=== PATIENT | female | born 1980 | race Caucasian/White ===

== ENCOUNTER 2016-09-20 21:33 | Emergency (ER) | payer OTHER ==
[2016-09-20 21:39] VITALS: BMI 25.7
[2016-09-20] MEDS ORDERED: IBUPROFEN 600 MG TABLET (FP) PO ONE ×2 (21:39→21:41)
[2016-09-20 21:59] LABS: URINE APPEARANCE CLEAR; URINE BILIRUBIN NEGATIVE (NEGATIVE); URINE BLOOD 3+ (NEGATIVE); URINE COLOR LTYELLOW; URINE GLUCOSE (UA) NEGATIVE (NEGATIVE); URINE KETONE 1+ (NEGATIVE); URINE LEUK ESTERASE NEGATIVE (NEGATIVE); URINE NITRITE NEGATIVE (NEGATIVE); URINE PROTEIN 1+ (NEGATIVE); URINE UROBILINOGEN NEGATIVE E.U./dl (0.2-1.0)
[2016-09-20 22:00] LABS: URINE BACTERIA RARE /hpf (NONE SEEN); URINE MUCUS RARE; URINE RBC 34 /hpf (0-3); URINE WBC 2 /hpf (3-5)
[2016-09-20] MEDS ORDERED: SODIUM CHLORIDE 1,000 ML IV STA (23:01)
--- NOTE | 2016-09-20 23:04 | PDOC ---
[id number] COLD SYMPTOMS Time Seen by Provider: 09/20/16 21:36 History Source: Patient Exam Limitations: No Limitations - History of Present Illness Initial Comments: 09/20/16 23:04 CHIEF COMPLAINT: Fever HISTORY OF PRESENT ILLNESS: This is a 36-year-old female with a history only of c/s x 3 (last 5 yrs ago) who presents to the ED complaining of 2 days of fevers/ chills, lower abdominal pain, back pain, and throat pain. She denies cough, shortness of breath, or chest pain. She reports dysuria/burning on urination and copious vaginal discharge. Vital signs on arrival are notable for oral temperature of 102.6 and pulse of 122. Patient does not have a PCP. REVIEW OF SYSTEMS: GENERAL/CONSTITUTIONAL: Fevers/chills, malaise. HEAD, EYES, EARS, NOSE AND THROAT: Throat pain/painful swallowing. CARDIOVASCULAR: No chest pain or palpitations. RESPIRATORY: No cough, wheezing, or shortness of breath. GASTROINTESTINAL: Nausea. No vomiting, diarrhea or constipation. GENITOURINARY: Dysuria/burning on urination. Lower abdominal pain and back pain. Vaginal discharge. LMP ended 1 wk ago. MUSCULOSKELETAL: No joint or muscle swelling or pain. No neck or back pain. SKIN: No rash or easy bruising. NEUROLOGIC: No headache, vertigo, loss of consciousness, or loss of sensation. PSYCHIATRIC: No depression or anxiety. ENDOCRINE: No increased thirst. No abnormal weight change. HEMATOLOGIC/LYMPHATIC: No anemia, easy bleeding, or history of blood clots. ALLERGIC/IMMUNOLOGIC: No hives or skin allergy. No latex allergy. PHYSICAL EXAM: GENERAL: The patient is awake, alert, and fully oriented, in no acute distress. HEAD: Normal with no signs of trauma. ENT: Tonsils 2+ and erythematous with patchy white exudates. Pupils equal, round and reactive to light, extraocular movements intact, sclera anicteric, conjunctiva clear. Neck supple. LUNGS: Clear to auscultation bilaterally. Normal excursion. No respiratory distress or use of accessory muscles. CV: Tachycardic. RRR, S1/S2, no MRG. Cap refill < 2 sec. ABDOMEN: Soft, non-distended, bilateral lower abdominal tenderness.. EXTREMITIES: Normal range of motion, no edema. NEUROLOGICAL: Normal speech, normal gait. CN II-XII grossly intact. PSYCH: Normal mood, normal affect. SKIN: Warm, dry, normal turgor, no rashes or lesions noted. SHOVEL LOADER OPERATOR: Normal external exam. [place] yellow-light brown, thin, non-malodorous discharge. Mild CMT. No adnexal tenderness. Past History - Past Medical History Allergies/Adverse Reactions: Allergies Allergy/AdvReac Type Severity Reaction Status Date / Time No Known Allergies Allergy Verified 09/20/16 21:35 - Psycho/Social/Smoking Cessation Hx Anxiety: No Suicidal Ideation: No Smoking History: Never smoked Have you smoked in the past 12 months: No Information on smoking cessation initiated: No Hx Alcohol Use: No Drug/Substance Use Hx: No Substance Use Type: None *Physical Exam - Vital Signs Last Vital Signs Temp Pulse Resp BP Pulse Ox 102.6 F H 122 H 18 144/72 98 09/20/16 21:35 09/20/16 21:35 09/20/16 21:35 09/20/16 21:35 09/20/16 21:35 ED Treatment Course - LABORATORY CBC & Chemistry Diagram: 09/20/16 23:15 09/20/16 23:15 - ADDITIONAL ORDERS Additional order review: Laboratory Results 09/20/16 21:50 Urine Color Ltyellow Urine Appearance Clear Urine pH 5.0 Ur Specific [place] 1.012 Urine Protein 1+ H Urine Glucose (UA) Negative Urine Ketones 1+ H Urine Blood 3+ H Urine Nitrite Negative Urine Bilirubin Negative Urine Urobilinogen Negative Ur Leukocyte Esterase Negative Urine RBC 34 Urine WBC 2 Ur Epithelial Cells Few Urine Bacteria Rare Urine Mucus Rare Urine HCG, Qual Negative - Medications Given in the ED: ED Medications Discontinued Medications Generic Name Dose Route Start Last Admin Trade Name Freq PRN Reason Stop Dose Admin Ibuprofen 600 mg 09/20/16 21:39 09/20/16 21:49 Motrin - PO 09/20/16 21:40 600 mg ONCE ONE Administration Medical Decision Making - Medical Decision Making 09/21/16 00:00 A/P: 36 year old female with fever/tachycardia, lower abdominal/back pain, dysuria, abnormal vaginal discharge, and throat pain. 1. UA/urine /urine culture 2. Basic labs, lactic acid, blood cultures per sepsis protocol 3. GC/CT swabs sent; will treat empirically for PID with Ceftriaxone/ Azithromycin 4. Given high fever and presumed pelvic infection, will obtain transvaginal u/s to r/o TOA 5. IVF 6. Motrin for fever 7. Transfer to Main ED for further evaluation/disposition; report given to Dr. Hebert *DC/Admit/Observation/Transfer Diagnosis at time of Disposition: Vaginal discharge - Discharge Dispostion Disposition: HOME Condition at time of disposition: Stable - Referrals Referrals: Gypsy Stewart [Primary Care Provider] - Markus Hilton MD [Staff Physician] - - Patient Instructions Printed Discharge Instructions: DI for Vaginal Discharge Additional Instructions: You have been covered for all possible infections with antibiotics you received here in the department. Please follow up with your customer care specialist for re-evaluation. Return if any problems Print Language: PALESTINIAN
[2016-09-20 23:36] LABS: BASOPHIL 0.6 % (0-2.0); MCH 21.7 pg (25.7-33.7); MCHC 31.9 g/dl (32.0-36.0); MEAN CELL VOLUME 67.9 fl (80-96); MEAN PLT VOLUME 9.1 fl (7.5-11.1); NEUTROPHILS 89.2 % (42.8-82.8); PLATELET COUNT 326 K/MM3 (134-434); RDW 16.7 % (11.6-15.6); WHITE BLOOD COUNT 16.8 K/mm3 (4.0-10.0)
[2016-09-20] MEDS ORDERED: AZITHROMYCIN 1 GM PACKET PO ONE (23:37)
[2016-09-20] MEDS ORDERED: CEFTRIAXONE 250 MG in DEXTROSE 5%-WATER - 50 ML IVPB ONE (23:37)
[2016-09-20] MEDS ORDERED: AZITHROMYCIN 1 GM PACKET ONE (23:42)
[2016-09-21] LABS: ALBUMIN 3.4 g/dl (3.4-5.0); ANION GAP 9 (8-16); BILIRUBIN,TOTAL 1.1 mg/dL (0.2-1.0); CALCIUM 8.5 mg/dL (8.5-10.1); CO2 29 mmol/L (21-32); CREATININE 0.7 mg/dL (0.55-1.02); GLUCOSE,RANDOM 105 mg/dL (74-106); SGOT/AST 18 U/L (15-37); SGPT/ALT 18 U/L (12-78); TOT PROT 7.3 g/dl (6.4-8.2)
[2016-09-21 00:01] LABS: ALK PHOS 66 U/L (45-117)
[2016-09-21 00:28] LABS: ANISOCYTOSIS 1+; HYPOCHROMIA 2+; MICROCYTOSIS 1+; PLATELET ESTIMATE ADEQUATE (NORMAL)
--- NOTE | 2016-09-21 01:02 | PDOC ---
*Physical Exam - Vital Signs Last Vital Signs Temp Pulse Resp BP Pulse Ox 102.6 F H 122 H 18 144/72 98 09/20/16 21:35 09/20/16 21:35 09/20/16 21:35 09/20/16 21:35 09/20/16 21:35 ED Treatment Course - LABORATORY CBC & Chemistry Diagram: 09/20/16 23:15 09/20/16 23:15 - ADDITIONAL ORDERS Additional order review: Laboratory Results 09/20/16 09/20/16 09/20/16 23:15 23:15 21:50 Sodium 139 Potassium 3.3 L Chloride 101 Carbon Dioxide 29 Anion Gap 9 BUN 7 Creatinine 0.7 Creat Clearance w eGFR > 60 Random Glucose 105 Lactic Acid 1.331 Calcium 8.5 Total Bilirubin 1.1 H AST 18 ALT 18 Alkaline Phosphatase 66 Total Protein 7.3 Albumin 3.4 Urine Color Ltyellow Urine Appearance Clear Urine pH 5.0 Ur Specific [place] 1.012 Urine Protein 1+ H Urine Glucose (UA) Negative Urine Ketones 1+ H Urine Blood 3+ H Urine Nitrite Negative Urine Bilirubin Negative Urine Urobilinogen Negative Ur Leukocyte Esterase Negative Urine RBC 34 Urine WBC 2 Ur Epithelial Cells Few Urine Bacteria Rare Urine Mucus Rare Urine HCG, Qual Negative 09/20/16 21:50 Group A Strep Rapid Antigen - Final Throat 09/20/16 23:15 RBC 4.50 MCV 67.9 L MCHC 31.9 L RDW 16.7 H MPV 9.1 Neutrophils % 89.2 H Lymphocytes % 5.5 L Monocytes % 4.7 Eosinophils % 0.0 Basophils % 0.6 - Medications Given in the ED: ED Medications Discontinued Medications Generic Name Dose Route Start Last Admin Trade Name Onielq PRN Reason Stop Dose Admin Azithromycin 1 gm 09/20/16 23:37 09/21/16 00:03 Zithromax - PO 09/20/16 23:38 1 gm ONCE ONE Administration Sodium Chloride 1,000 mls @ 1,000 mls/hr 09/20/16 23:01 09/20/16 23:39 Normal Saline - IV 09/21/16 00:00 1,000 mls/hr ASDIR STA Administration Ceftriaxone Sodium 250 mg/ 50 mls @ 100 mls/hr 09/20/16 23:37 09/21/16 00:03 Dextrose IVPB 09/21/16 00:06 100 mls/hr ONCE ONE Administration Ibuprofen 600 mg 09/20/16 21:39 09/20/16 21:49 Motrin - PO 09/20/16 21:40 600 mg ONCE ONE Administration *DC/Admit/Observation/Transfer Diagnosis at time of Disposition: Vaginal discharge - Discharge Dispostion Disposition: HOME Condition at time of disposition: Stable Admit: No - Referrals Referrals: Gypsy Stewart [Primary Care Provider] - Markus Hilton MD [Staff Physician] - - Patient Instructions Printed Discharge Instructions: DI for Vaginal Discharge Additional Instructions: You have been covered for all possible infections with antibiotics you received here in the department. Please follow up with your configuration management analyst for re-evaluation. Return if any problems Print Language: CITIZEN OF [place]
[2016-09-21 01:06] VITALS: BP 132/76; PULSE 87; TEMP 98
== END 2016-09-21 01:06 | disposition home or self-care (01) ==
LOC: JER 21:33
PROC: 3E0337Z Introduction of Electrolytic and Water Balance Substance into Peripheral Vein, Percutaneous Approach (ICD-10-PCS; principal; 2016-09-20)
PROC: 3E03329 Introduction of Other Anti-infective into Peripheral Vein, Percutaneous Approach (ICD-10-PCS; 2016-09-20)
DX: N89.8 Other specified noninflammatory disorders of vagina (principal)
CPT/HCPCS: 36415; 71010-TC; 76830-TC; 80053; 81003; 81015; 83605; 84703; 85025; 87040; 87070; 87081; 87086; 87186; 87205; 87430; 87491; 87591; 87804; 96361; 96365; 99281-25

== ENCOUNTER 2017-06-15 11:57 | Inpatient (IN) | payer OTHER ==
[2017-06-15] MEDS ORDERED: CITRIC ACID/SODIUM CITRATE 30 ML UNIT-DOSE CUP PO ONE (12:00)
[2017-06-15] MEDS ORDERED: ELECTROLYTE-148 SOLN 1,000 ML IV SCH ×2 (12:00→12:30)
[2017-06-15 12:36] VITALS: BMI 31.4
[2017-06-15] MEDS ORDERED: morphine SULFATE/Preservative Free 0.5 MG/ML (1cc Syringe) SPIN ONE (15:00)
--- NOTE | 2017-06-15 15:03 | HP ---
Past Medical History - Primary Care Physician PCP:: Markus Hilton - Admission Chief Complaint: 39 weeks, 3 previous c/s, voluntary sterlization History of Present Illness: 37 yo f edc by sono 06/22/17, edc by date 06/15/17 39 weeks, with 3 previous c/s in D.R , requesting repeat c/s and tubal ligation, risks of repeat c/s discussed , aware risks of bowel, bladder, vesseles and nerve, ureter injury , post hemorrhage . post op complications, blood transfusion discussed , risks of tubal ligation and small failure risk and ectopic risks discussed History Source: Patient Limitations to Obtaining History: Language Barrier - Past Medical History ...: 5 ...Para: 3 ...Term: 3 ...Induced : 1 ...LMP: 09/08/16 ... Weeks Gestation by Dates: 40 ...EDC by Dates: 06/15/17 ...EDC by Sono: 06/22/17 - Past Surgical History Past Surgical History: Yes: Hx Myomectomy: No Hx Transabdominal Cerclage: No - Smoking History Smoking history: Never smoked Have you smoked in the past 12 months: No - Alcohol/Substance Use Hx Alcohol Use: No History of Substance Use: reports: None - Social History Usual Living Arrangement: Yes: With Spouse History of Recent Travel: No Home Medications - Allergies Allergies/Adverse Reactions: Allergies Allergy/AdvReac Type Severity Reaction Status Date / Time No Known Allergies Allergy Verified 09/20/16 21:35 Review of Systems - Review of Systems Constitutional: reports: No Symptoms Eyes: reports: No Symptoms HENT: reports: No Symptoms Neck: reports: No Symptoms Cardiovascular: reports: No Symptoms Respiratory: reports: No Symptoms Gastrointestinal: reports: No Symptoms Genitourinary: reports: No Symptoms Breasts: reports: No Symptoms Reported Musculoskeletal: reports: Back Pain Integumentary: reports: No Symptoms Neurological: reports: No Symptoms Endocrine: reports: No Symptoms Hematology/Lymphatic: reports: No Symptoms Psychiatric: reports: No Symptoms Physical Exam - Maternity Constitutional: Yes: Well Nourished, No Distress, Calm Eyes: Yes: WNL, Conjunctiva Clear, EOM Intact HENT: Yes: WNL, Atraumatic, Normocephalic Neck: Yes: WNL, Supple, Trachea Midline Cardiovascular: Yes: WNL, Regular Rate and Rhythm Breast(s): Yes: WNL - Abdominal Exam/OB Number of Fetuses: Single Presentation: Vertex Contractions: No Regularity: Irritability Intensity: Unaware Monitor Mode: External Heart Rate Location: [facility] Category: I Accelerations: Uniform Decelerations: None - Vaginal Exam/OB Vaginal Bleediing: No Speculum Exam: No Dilatation (cm): closed Effacement (%): 0 Amniotic Membrane Status: Intact Presentation: Vertex/Position Station: -3 - Physical Exam Edema: Yes Edema: LLE: Trace, RLE: Trace Deep Tendon Reflex Grade: Normal +2 Psychiatric: Yes: WNL Problem List - Problems (1) with 39 completed weeks gestation Code(s): Z3A.39 - 39 WEEKS GESTATION OF (2) Advanced maternal age (AMA) in Code(s): ORK1245 - (3) Previous section complicating Code(s): O34.219 - MATERNAL CARE FOR UNSP TYPE SCAR FROM PREVIOUS DEL (4) Admission for sterilization Code(s): Z30.2 - ENCOUNTER FOR STERILIZATION Assessment/Plan repeat c/s and BTL, rba discussed
[2017-06-15] MEDS ORDERED: ONDANSETRON 4 MG/2 ML VIAL IVPUSH PRN (15:05)
[2017-06-15] MEDS ORDERED: diphenhydrAMINE HCL 25 MG CAPSULE (FP) PO PRN (15:56)
[2017-06-15] MEDS ORDERED: BENZOCAINE 28 GM HEMORRHOIDAL OINTMENT PR PRN (15:56)
[2017-06-15] MEDS ORDERED: BENZOCAINE 20% 57 GM BOTTLE TP PRN (15:56)
[2017-06-15] MEDS ORDERED: IBUPROFEN 600 MG TABLET (FP) PO PRN (15:56)
[2017-06-15] MEDS ORDERED: WITCH HAZEL 50% (TUCKS) 40 PAD/JAR PAD TP PRN (15:56)
[2017-06-15] MEDS ORDERED: oxyCODONE HCL 5 MG TABLET PO PRN (15:56)
[2017-06-15] MEDS ORDERED: METHYLERGONOVINE MALEATE 0.2 MG/1 ML AMP IM PRN (15:56)
[2017-06-15] MEDS ORDERED: DEXTROSE 5%-LACTATED RINGERS 1,000 ML IV SCH (16:00)
[2017-06-15] MEDS ORDERED: OXYTOCIN 20 UNITS in 0.9% NS 20 UNIT/1,000 ML INFUS.BAG IV SCH (16:00)
[2017-06-15] MEDS ORDERED: CEFAZOLIN 1 GM/D5W 50 ML IVPB SCH (18:00)
[2017-06-15] MEDS ORDERED: CEFAZOLIN 1 GM PUSH 1 GM/10 ML DISP.SYRIN IVPUSH SCH (18:00)
[2017-06-15] MEDS: IBUPROFEN 800 MG/8 ML IJ IVPB PRN (18:15)
[2017-06-15] MEDS: CEFAZOLIN 1 GM PUSH 1 GM/10 ML DISP.SYRIN IVPUSH SCH (19:42)
[2017-06-16] MEDS: CEFAZOLIN 1 GM PUSH 1 GM/10 ML DISP.SYRIN IVPUSH SCH (01:47)
--- NOTE | 2017-06-16 07:15 | OP ---
DATE OF OPERATION: 06/15/2017 PREOPERATIVE DIAGNOSIS: , 39 weeks; 3 previous cessation sections, request of repeat section and bilateral tubal ligation; advanced maternal age. POSTOPERATIVE DIAGNOSIS: , 39 weeks; 3 previous cessation sections, request of repeat section and bilateral tubal ligation; advanced maternal age. PROCEDURE PERFORMED: Repeat low-segment transverse section and bilateral tubal ligation. SURGEON: Markus Hilton MD CHUCKING MACHINE SET UP OPERATOR: KEVIN Cruz ANESTHESIA: Spinal. ANESTHESIOLOGIST: Akira Mitchell MD ESTIMATED BLOOD LOSS: 500 mL. DESCRIPTION OF PROCEDURE: The patient was taken to the operating room and had adequate spinal anesthesia. Abdomen and perineum were prepped and draped. A Pfannenstiel abdominal skin incision was made. The abdominal wall was cut layer by layer, until the peritoneum was exposed and incised. Upon entering the abdominal cavity, the lower uterine segment was identified and uterovesical fold of peritoneum established. The bladder was pushed down. A low transverse uterine incision was made. The incision was extended laterally. The amniotic sac was entered. Clear fluid. Head delivered. Nasopharynx was suctioned and live baby was delivered. The placenta was delivered manually. The uterine cavity was cleaned of all remaining tissue. The uterine incision was closed in 2 layers, the 1st layer with 0 Biosyn continuous suture and the 2nd layer with 0 Biosyn imbricating the 1st layer. The bladder flap was closed with 0 Biosyn continuous suture. Both tubes and ovaries were checked and were normal. Then the right tube was grasped with a Demetrius clamp. The right tube was doubly tied with 2-0 plain. A portion of tube was removed. Endosalpinx was cauterized. The same procedure was repeated for the opposite tube. The pelvic cavity irrigated. All the lap, sponge and instrument counts were correct. Then the peritoneum was closed with 0 Biosyn continuous suture. The muscles were brought together with interrupted suture of 0 Biosyn. The fascia was closed with 0 Biosyn continuous suture, the subcutaneous fat with interrupted suture of 0 Biosyn, and the skin was closed with jennifer. The patient tolerated the procedure well, and left the OR in good condition. Sha [id number]
[2017-06-16] MEDS: IBUPROFEN 800 MG/8 ML IJ IVPB PRN (07:47)
[2017-06-16 07:48] LABS: BASOPHIL 0.6 % (0-2.0); EOSINOPHIL 0.3 % (0-4.5); MCH 27.3 pg (25.7-33.7); MCHC 33.3 g/dl (32.0-36.0); MEAN PLT VOLUME 9.6 fl (7.5-11.1); NEUTROPHILS 80.6 % (42.8-82.8); PLATELET COUNT 234 K/MM3 (134-434); RDW 14.1 % (11.6-15.6); WHITE BLOOD COUNT 12.5 K/mm3 (4.0-10.0)
--- NOTE | 2017-06-16 08:02 | PN ---
Progress Note (short form) - Note Progress Note: pod 1 doing well, has mild cramps Last Vital Signs Temp Pulse Resp BP Pulse Ox 98.2 F 73 18 97/63 97 06/16/17 06:10 06/16/17 06:10 06/16/17 06:10 06/16/17 06:10 06/15/17 20:45 abdomen soft, no distension, no cva, incision dry, clean no excess vaginal bleeding, no calf pain plan ambulate , cbc Problem List - Problems (1) with 39 completed weeks gestation Code(s): Z3A.39 - 39 WEEKS GESTATION OF (2) Advanced maternal age (AMA) in Code(s): [id number] - (3) Previous section complicating Code(s): O34.219 - MATERNAL CARE FOR UNSP TYPE SCAR FROM PREVIOUS DEL (4) Admission for sterilization Code(s): Z30.2 - ENCOUNTER FOR STERILIZATION
[2017-06-16] MEDS: ENOXAPARIN NA (PORCINE) 40 MG/0.4 ML DISP.SYRIN SQ SCH (09:26)
--- NOTE | 2017-06-16 10:27 | PN ---
Progress Note (short form) - Note Progress Note: ANESTHESIOLOGY POST OP NOTE S: S/P C SECTION POST OP DAY ONE. PATEINT REPORTS NO ADVERSE REACTION TO ANESTHETIC O: NO NEUROLOGICAL DEFICITS, HEADACHE, BACKACHE, OR COMPLICATIONS TO ANESTHETIC Last Vital Signs Temp Pulse Resp BP Pulse Ox 98.2 F 73 18 97/63 97 06/16/17 06:10 06/16/17 06:10 06/16/17 06:10 06/16/17 06:10 06/15/17 20:45 A/P: PATIENT PAIN IS CONTROLLED, NO ADVERSE EFFECTS, DEPT OF ANESTHESIA WILL SIGN OFF CASE AT THIS TIME
[2017-06-16] MEDS ORDERED: DIPHTH,PERTUSS(ACELL),TET 0.5 ML DISP.SYRIN IM ONE (14:00)
[2017-06-16] MEDS: IBUPROFEN 600 MG TABLET (FP) PO PRN ×2 (14:35→19:30)
[2017-06-16] MEDS: SIMETHICONE 80 MG TAB.CHEW (FP) PO PRN ×2 (14:36→19:29)
[2017-06-16] MEDS: ACETAMINOPHEN 325 MG TABLET (FP) PO PRN ×2 (14:36→19:31)
[2017-06-16] MEDS: oxyCODONE HCL 5 MG TABLET PO PRN ×2 (15:21→19:29)
[2017-06-16] MEDS ORDERED: BISACODYL 10 MG SUPP.RECT PR PRN (15:57)
[2017-06-17] MEDS: SIMETHICONE 80 MG TAB.CHEW (FP) PO PRN ×3 (05:35→20:54)
[2017-06-17] MEDS: oxyCODONE HCL 5 MG TABLET PO PRN ×3 (05:36→20:54)
[2017-06-17] MEDS: IBUPROFEN 600 MG TABLET (FP) PO PRN ×3 (05:39→20:55)
[2017-06-17] MEDS: ACETAMINOPHEN 325 MG TABLET (FP) PO PRN ×3 (05:39→20:55)
[2017-06-17] MEDS: ENOXAPARIN NA (PORCINE) 40 MG/0.4 ML DISP.SYRIN SQ SCH (09:29)
--- NOTE | 2017-06-17 09:29 | PN ---
Post Progress Note - Subjective Subjective: 37 yo Para 4 status post repeat seen and evaluated. Doing well, no complaints. Post Day: 2 Type of Delivery: Repeat C/S Vital Signs: Vital Signs Temperature 98 F 06/17/17 07:40 Pulse Rate 68 06/17/17 07:40 Respiratory Rate 20 06/17/17 07:40 Blood Pressure 100/65 06/17/17 07:40 O2 Sat by Pulse Oximetry (%) 97 06/15/17 20:45 Breast Exam: Yes: Soft Uterus: Yes: Fundus Firm Incision: Yes: Dressing dry and intact Abdomen/GI: Yes: Abdomen soft, Tolerating PO Lochia: Yes: Rubra Lochia, amount: Small Extremities: Yes: Calves non-tender Perineum: Yes: Intact Activity: Ambulating - Labs Labs: CBC WBC 12.5 K/mm3 (4.0-10.0) H D 06/16/17 07:20 RBC 3.55 M/mm3 (3.60-5.2) L 06/16/17 07:20 Hgb 9.7 GM/dL (10.7-15.3) L D 06/16/17 07:20 Hct 29.1 % (32.4-45.2) L 06/16/17 07:20 MCV 82.0 fl (80-96) 06/16/17 07:20 MCH 27.3 pg (25.7-33.7) 06/16/17 07:20 MCHC 33.3 g/dl (32.0-36.0) 06/16/17 07:20 RDW 14.1 % (11.6-15.6) 06/16/17 07:20 Plt Count 234 K/MM3 (134-434) 06/16/17 07:20 MPV 9.6 fl (7.5-11.1) 06/16/17 07:20 Neutrophils % 80.6 % (42.8-82.8) 06/16/17 07:20 Lymphocytes % 12.4 % (8-40) D 06/16/17 07:20 Monocytes % 6.1 % (3.8-10.2) 06/16/17 07:20 Eosinophils % 0.3 % (0-4.5) 06/16/17 07:20 Basophils % 0.6 % (0-2.0) 06/16/17 07:20 Assessment/Plan Status post repeat Stable Ambulation Analgesia as needed Continue routine post op care
[2017-06-17] MEDS ORDERED: SENNOSIDES/DOCUSATE COMBO (SENNA PLUS) TABLET (UD) PO PRN (22:00)
[2017-06-18] MEDS: SIMETHICONE 80 MG TAB.CHEW (FP) PO PRN ×2 (05:39→09:17)
[2017-06-18] MEDS: ACETAMINOPHEN 325 MG TABLET (FP) PO PRN ×2 (05:39→09:17)
[2017-06-18] MEDS: IBUPROFEN 600 MG TABLET (FP) PO PRN ×2 (05:42→09:16)
--- NOTE | 2017-06-18 05:51 | DS ---
Physical Exam-CLIENT TECHNOLOGIES ANALYST Vital Signs: Vital Signs Temperature 98.2 F 06/17/17 22:00 Pulse Rate 78 06/17/17 22:00 Respiratory Rate 18 06/17/17 22:00 Blood Pressure 119/71 06/17/17 22:00 O2 Sat by Pulse Oximetry (%) 97 06/15/17 20:45 Constitutional: Yes: Well Nourished Eyes: Yes: Conjunctiva Clear HENT: Yes: Atraumatic Neck: Yes: Supple Cardiovascular: Yes: Regular Rate and Rhythm Respiratory: Yes: Regular Gastrointestinal: Yes: Normal Bowel Sounds Vaginal Exam: Yes: Normal Cervix: Yes: Normal Uterus: Yes: Firm Wound/Incision: Yes: Well Approximated, [place] Intact Neurological: Yes: Alert, Oriented ...Motor Strength: WNL Psychiatric: Yes: Alert, Oriented Labs: CBC, BMP 06/16/17 07:20 Delivery - Delivery Type of Anesthesia: Spinal Episiotomy/Laceration: None EBL (cc): 500 Delivery, Single - Stages of Labor Date of Delivery: 06/15/17 Time of Delivery: 15:16 Time Placenta Delivered: 15:17 - Condition of Infant Reel Fed Printer/Fabricator Foam Rubber Present: Yes Name: Cristina Kay Gender: Male Weight: 7 lb 8 oz Position: Right, OT Total Hours ROM (Hrs/Mins): 2mins - 1 Minute Total Score: 9 5 Minutes Total Score: 9 - Agar Feeding Plan Initial Plan: Elected not to breastfeed exclusively throughout hospitalization Discharge Summary Reason For Visit: C SECTION Current Active Problems Admission for sterilization (Acute) Advanced maternal age (AMA) in (Acute) with 39 completed weeks gestation (Acute) Previous section complicating (Acute) Procedures: Principal: Repeat Condition: Good - Instructions Diet, Activity, Other Instructions: Regular diet No driving, no lifting x 4 weeks F/U with MD in 1 week Disposition: HOME - Home Medications Comprehensive Discharge Medication List: Ambulatory Orders Vitamins (Sjr) - 1 tab PO DAILY 06/15/17
[2017-06-18 08:10] VITALS: BP 104/68; PULSE 60; TEMP 97.3
[2017-06-18] MEDS: ENOXAPARIN NA (PORCINE) 40 MG/0.4 ML DISP.SYRIN SQ SCH (09:16)
[2017-06-18] MEDS: oxyCODONE HCL 5 MG TABLET PO PRN (09:16)
[2017-06-18 09:56] LABS: EOSINOPHIL 1.4 % (0-4.5); MCH 27.3 pg (25.7-33.7); MCHC 33.2 g/dl (32.0-36.0); MEAN CELL VOLUME 82.3 fl (80-96); MEAN PLT VOLUME 9.8 fl (7.5-11.1); NEUTROPHILS 76.8 % (42.8-82.8); PLATELET COUNT 247 K/MM3 (134-434); RDW 14.1 % (11.6-15.6); WHITE BLOOD COUNT 9.5 K/mm3 (4.0-10.0)
--- NOTE | 2017-06-21 15:42 | PATH ---
Surgical Pathology Report Patient Name: HAYLEE PRADO [facility]. Rec. #: [id number] /Age/Gender: 1980 (Age: 37) / F Account: [id number] Location: [facility] OBS/COLLAR SEWER Taken: 06/15/2017 Received: 06/16/2017 Reported: 06/21/2017 Physicians: Markus Hilton M.D. Specimen(s) Received A: PLACENTA B: LEFT FALLOPIAN TUBE C: RIGHT FALLOPIAN TUBE Clinical History , 39 weeks Previous x3 Final Diagnosis A. PLACENTA, SECTION: 533 g THIRD TRIMESTER PLACENTA WITH TRIVASCULAR UMBILICAL CORD AND UNREMARKABLE PLACENTAL MEMBRANES. B. FALLOPIAN TUBE, LEFT, PARTIAL EXCISION: FULL LUMINAL PORTION OF UNREMARKABLE FALLOPIAN TUBE. C. FALLOPIAN TUBE, RIGHT, PARTIAL EXCISION: FULL LUMINAL PORTION OF UNREMARKABLE FALLOPIAN TUBE. Electronically Signed Gypsy Chun M.D. Gross Description A. The specimen is received fresh labeled placenta and is a 533 gram, 14.0 x 12.5 x 4.5 cm. placenta with attached membranes and umbilical cord. The attached membranes are fung, thick, cloudy and display focal circumarginate insertion. The umbilical cord measures 44 cm. in length and averages 1.1 cm. in diameter. The cord inserts eccentrically, 4 cm. to the nearest margin. No true knots or strictures are identified. Cut surface of the umbilical cord reveals 3 vessels. The surface is castro-blue with minimal fibrin deposition and appropriate caliber vessels. The maternal surface is red-brown and intact. Sectioning reveals red-brown, spongy parenchyma. No lesions are identified. Inside Sales Advisor sections are submitted in three cassettes as follows: 1- membrane rolls and umbilical cord; 2-3- full thickness sections of placenta. B. Received in formalin labeled "left fallopian tube," is a 1.3 cm in length portion of fallopian tube. No fimbria are present. The outer surface is fung-leon and smooth. Sectioning reveals an unremarkable lumen. Inside Sales Advisor sections are submitted in one cassette. C. Received in formalin labeled "right fallopian tube," is a 1.5 cm in length portion of fallopian tube. No fimbria are present. The outer surface is fung castro and smooth. Sectioning reveals an unremarkable lumen. Inside Sales Advisor sections are submitted in one cassette. 06/20/2017 [facility]06/20/2017
== END 2017-06-18 13:00 | disposition home or self-care (01) | DRG 540 ==
LOC: JLDR 11:57 → J3W 17:41
PROVIDERS: ADMIT Obstetrics & Gynecology; ATTEND Obstetrics & Gynecology
PROC: 10D00Z1 Extraction of Products of Conception, Low, Open Approach (ICD-10-PCS; principal; 2017-06-15)
PROC: 0UB70ZZ Excision of Bilateral Fallopian Tubes, Open Approach (ICD-10-PCS; 2017-06-15)
DX: O34.211 Maternal care for low transverse scar from previous cesarean delivery (principal); N85.8 Other specified noninflammatory disorders of uterus; Z3A.39 39 weeks gestation of pregnancy; Z37.0 Single live birth; Z30.2 Encounter for sterilization
CPT/HCPCS: 36415; 85025; 90715

== ENCOUNTER 2018-10-13 00:20 | Inpatient (IN) | payer OTHER ==
[2018-10-13 00:59] VITALS: BMI 27.3
--- NOTE | 2018-10-13 01:01 | PDOC ---
History of Present Illness - General Chief Complaint: Lightheaded Stated Complaint: DIZZINESS,NAUSEA Time Seen by Provider: 10/13/18 01:00 - History of Present Illness Initial Comments: 10/13/18 01:00 Ms. Zee pino is a 38 yo female w/ pmh of anemia in only who presents for evaluation of 2 day history of dizziness. Patient reports she had initially had intermittent symptoms however elected to come to the ER as she was dizzy all day today. Endorses nausea however denies vomit. The patient denies chest pain, shortness of breath, headache and dizziness. Denies fever, chills, diarrhea and constipation. Denies dysuria, frequency, urgency and hematuria. Past History - Past Medical History Allergies/Adverse Reactions: Allergies Allergy/AdvReac Type Severity Reaction Status Date / Time No Known Allergies Allergy Verified 10/13/18 01:00 Home Medications: Ambulatory Orders NK [No Known Home Medication] 10/13/18 Asthma: No Cancer: No Cardiac Disorders: No COPD: No Diabetes: No HTN: No Seizures: No Thyroid Disease: No - Suicide/Smoking/Psychosocial Hx Smoking History: Smoker current status UNK Have you smoked in the past 12 months: No Information on smoking cessation initiated: No Hx Alcohol Use: No Drug/Substance Use Hx: No Substance Use Type: None Hx Substance Use Treatment: No Review of Systems - Review of Systems Comments:: 10/13/18 01:00 GENERAL/CONSTITUTIONAL: No fever or chills. No weakness. HEAD, EYES, EARS, NOSE AND THROAT: No change in vision. No ear pain or discharge. No sore throat. CARDIOVASCULAR: No chest pain or shortness of breath RESPIRATORY: No cough, wheezing, or hemoptysis. GASTROINTESTINAL: No nausea, vomiting, diarrhea or constipation. GENITOURINARY: No dysuria, frequency, or change in urination. MUSCULOSKELETAL: No joint or muscle swelling or pain. No neck or back pain. SKIN: No rash NEUROLOGIC: +Dizziness as described. No headache, loss of consciousness, or change in strength/sensation. ENDOCRINE: No increased thirst. No abnormal weight change HEMATOLOGIC/LYMPHATIC: No anemia, easy bleeding, or history of blood clots. ALLERGIC/IMMUNOLOGIC: No hives or skin allergy. *Physical Exam - Vital Signs Last Vital Signs Temp Pulse Resp BP Pulse Ox 98.4 F 54 L 20 108/63 100 10/13/18 00:20 10/13/18 00:20 10/13/18 00:20 10/13/18 00:20 10/13/18 00:20 - Physical Exam Comments: 10/13/18 01:00 GENERAL: Awake, alert, and fully oriented, in no acute distress HEAD: No signs of trauma, normocephalic, atraumatic EYES: +Mild right sided nystagmus noted. PERRLA, EOMI, sclera anicteric, conjunctiva clear ENT: Auricles normal inspection, hearing grossly normal, nares patent, oropharynx clear without exudates. Moist mucosa NECK: Normal ROM, supple, no lymphadenopathy, JVD, or masses LUNGS: No distress, speaks full sentences, clear to auscultation bilaterally HEART: Regular rate and rhythm, normal S1 and S2, no murmurs, rubs or gallops, peripheral pulses normal and equal bilaterally. ABDOMEN: Soft, nontender, normoactive bowel sounds. No guarding, no rebound. No masses EXTREMITIES: Normal inspection, Normal range of motion, no edema. No clubbing or cyanosis. NEUROLOGICAL: Cranial nerves II through XII grossly intact. Normal speech, normal gait, no focal sensorimotor deficits SKIN: Warm, Dry, normal turgor, no rashes or lesions noted. Moderate Sedation - Procedure Monitoring Vital Signs: Procedure Monitoring Vital Signs Temperature 98.4 F 10/13/18 00:20 Pulse Rate 54 L 10/13/18 00:20 Respiratory Rate 20 10/13/18 00:20 Blood Pressure 108/63 10/13/18 00:20 O2 Sat by Pulse Oximetry (%) 100 10/13/18 00:20 ED Treatment Course - LABORATORY CBC & Chemistry Diagram: 10/13/18 02:43 10/13/18 01:52 Medical Decision Making - Medical Decision Making 10/13/18 01:18 Ms. Koch is a 38 yo female w/ pmh as described who presents for evaluation of symptoms c/w vertigo. Will evaluate patient for r/o CVA or other acute process with Head CT; CBC/CMP/EKG ordered for r/o anemia, electrolyte abnormality, or cardiac process. Meclizine given for symptomatic relief. 10/13/18 03:[address] negative. Patient reporting only mild improvement of anemia with meclizine. Patient noted to be anemic as below. Inpatient team paged for admission for further evaluation for cause of and treatment of anemia. Laboratory Results - last 24 hr 10/13/18 10/13/18 10/13/18 01:52 01:52 01:52 WBC Cancelled Corrected WBC (auto) Cancelled RBC Cancelled Hgb Cancelled Hct Cancelled MCV Cancelled MCH Cancelled MCHC Cancelled RDW Cancelled Plt Count Cancelled MPV Cancelled Absolute Neuts (auto) Cancelled Neutrophils % Cancelled Lymphocytes % Cancelled Monocytes % Cancelled Eosinophils % Cancelled Basophils % Cancelled Nucleated RBC % Cancelled Platelet Estimate Cancelled Platelet Comment Cancelled Sodium 139 Potassium 4.7 Chloride 111 H Carbon Dioxide 24 Anion Gap 5 L BUN 10 Creatinine 0.5 L Creat Clearance w eGFR 139.61 Random Glucose 125 H Calcium 8.1 L Total Bilirubin 0.4 AST 32 ALT 20 Alkaline Phosphatase 61 Total Protein 7.2 Albumin 3.2 L Serum , Qual Negative 10/13/18 02:43 WBC 6.1 Corrected WBC (auto) RBC 4.25 Hgb 8.2 L Hct 26.1 L MCV 61.4 L MCH 19.4 L D MCHC 31.5 L RDW 19.7 H Plt Count 380 D MPV 9.2 Absolute Neuts (auto) 3.4 Neutrophils % 56.3 D Lymphocytes % 32.5 D Monocytes % 7.3 Eosinophils % 1.4 Basophils % 2.5 H Nucleated RBC % 0 Platelet Estimate Platelet Comment Sodium Potassium Chloride Carbon Dioxide Anion Gap BUN Creatinine Creat Clearance w eGFR Random Glucose Calcium Total Bilirubin AST ALT Alkaline Phosphatase Total Protein Albumin Serum , Qual *DC/Admit/Observation/Transfer Diagnosis at time of Disposition: Dizziness Anemia Qualifiers: Anemia type: unspecified type Qualified Code(s): D64.9 - Anemia, unspecified - Discharge Dispostion Condition at time of disposition: Fair Decision to Admit order: Yes - Referrals - Patient Instructions - Post Discharge Activity
[2018-10-13] MEDS ORDERED: MECLIZINE HCL 25 MG TABLET (FP) PO ONE (01:45)
[2018-10-13] MEDS ORDERED: MECLIZINE HCL 25 MG TABLET (FP) ONE (01:48)
[2018-10-13 02:32] LABS: ALBUMIN 3.2 g/dl (3.4-5.0); ALK PHOS 61 U/L (45-117); ANION GAP 5 MMOL/L (8-16); BILIRUBIN,TOTAL 0.4 mg/dL (0.2-1); BLOOD UREA NITROGEN 10 mg/dL (7-18); CALCIUM 8.1 mg/dL (8.5-10.1); CHLORIDE 111 mmol/L (98-107); CO2 24 mmol/L (21-32); CREATININE 0.5 mg/dL (0.55-1.3); GLUCOSE,RANDOM 125 mg/dL (74-106); SGOT/AST 32 U/L (15-37); SGPT/ALT 20 U/L (13-61); SODIUM 139 mmol/L (136-145); TOT PROT 7.2 g/dl (6.4-8.2)
[2018-10-13 02:47] LABS: POTASSIUM 4.7 mmol/L (3.5-5.1)
[2018-10-13 02:49] LABS: BASO % 2.5 % (0-2.0); EOS % 1.4 % (0-4.5); HEMATOCRIT 26.1 % (32.4-45.2); HEMOGLOBIN 8.2 GM/dL (10.7-15.3); LYMPH % 32.5 % (8-40); MCHC 31.5 g/dl (32.0-36.0); MEAN CELL VOLUME 61.4 fl (80-96); MEAN PLT VOLUME 9.2 fl (7.5-11.1); MONO % 7.3 % (3.8-10.2); NEUT % 56.3 % (42.8-82.8); PLATELET COUNT 380 K/MM3 (134-434); RBC 4.25 M/mm3 (3.60-5.2); RDW 19.7 % (11.6-15.6); WHITE BLOOD COUNT 6.1 K/mm3 (4.0-10.0)
[2018-10-13 02:50] LABS: MCH 19.4 pg (25.7-33.7)
--- NOTE | 2018-10-13 03:09 | PDOC ---
Attending Attestation - Resident Resident Name: Frank Parikh - ED Attending Attestation I have performed the following: I have examined & evaluated the patient, The case was reviewed & discussed with the resident, I agree w/resident's findings & plan - HPI HPI: 10/13/18 03:22 Pt comes with dizziness that comes and goes since . She has been dizzy on and off ; then on and off Mon and dizzy all day today. Pt has low Hb/HCT; lowest on record in our EMR is 9.4 Today she is 8.4. - Physicial Exam PE: 10/13/18 03:22 Agree with resident exam - Medical Decision Making 10/13/18 03:22 Patient Name: DIAMOND THIS IS A PRELIMINARY REPORT FROM IMAGING DRIVER LICENSE TECHNICIAN DATE OF SERVICE: 2018-10-13 02:08:47 IMAGES: 141 EXAM: HEAD CT WITHOUT CONTRAST HISTORY: Worsening dizziness COMPARISON: None. FINDINGS: The ventricular system is midline and nondilated. The sulcal pattern is normal for the patient's age. There is no bleed, mass, extra-axial fluid collection or mass effect. No skull fracture or skull lesion is identified. The visualized paranasal sinuses and mastoid air cells are clear. IMPRESSION: Normal exam 10/13/18 03:33 Pt tells us that she has a hx of anemia; states that she has no PMD; she initially told us that she feared she may have low HB that may be causing this. Pt will be admitted for symptomatic anemia, as she is unable to ambulate due to the dizziness.
--- NOTE | 2018-10-13 03:57 | PN ---
Teaching Attending Note Name of Resident: Favio Araya ATTENDING PHYSICIAN STATEMENT I saw and evaluated the patient. I reviewed the resident's note and discussed the case with the resident. I agree with the resident's findings and plan as documented. SUBJECTIVE: Patient is 39 year old woman with PMH of 3 C-sections and anemia in who presents for evaluation of 2 day history of dizziness. Patient reports she had initially had intermittent symptoms however elected to come to the ER as she was dizzy all day today. Has had nausea however denies vomit. Patient denies chest pain, shortness of breath, headache, fever, chills, diarrhea, constipation, dysuria, frequency, urgency or hematuria. No family history of anemia. Currently on her period and does have heavy bleeding that lasts 6 to 7 days. OBJECTIVE: Alert Vital Signs Period Temp Pulse Resp BP Sys/Wright Pulse Ox Last 24 Hr 98.4 F 54 20 108/63 100 HEENT: No Jaundice, eye redness or discharge, PERRLA, EOMI. Normocephalic, atraumatic. External ears are normal and hearing is grossly intact. No nasal discharge. Neck: Supple, nontender. No palpable adenopathy or thyromegaly. No JVD Chest: Good effort. Clear to auscultation and percussion. Heart: Regular. No S3, rub or murmur Abdomen: Not distended, soft, nontender and no HSM. No rebound or guarding. Normal bowel sounds. Ext: Peripheral pulses intact. No leg edema. Skin: Warm and dry. No petechiae, rash or ecchymosis. Neuro: Alert. Oriented x3. CN 2-12 grossly intact. Sensation grossly intact in all four extremities and DTR are symmetric. Psych: Appropriate mood and affect. Good insight. Home Medications Medication Instructions Recorded NK [No Known Home Medication] 10/13/18 Abnormal Lab Results 10/13/18 10/13/18 01:52 02:43 Hgb 8.2 L Hct 26.1 L MCV 61.4 L MCH 19.4 L D MCHC 31.5 L RDW 19.7 H Basophils % 2.5 H Chloride 111 H Anion Gap 5 L Creatinine 0.5 L Random Glucose 125 H Calcium 8.1 L Albumin 3.2 L ASSESSMENT AND PLAN: 1. Dizziness - Head CT scan didnot show any gross abnormality. May be partly due to severe low MCV anemia. Will get pelvic sonogram to rule out fibroids and get hemoglobin electrophoresis. Do basic anemia work up including serial stool guaiacs, reticulocyte count and iron studies. If iron deficiency is confirmed, then will give IV iron. If sympotms persist after anemai correction, then a brain MRI will be warranted. 2. Hypoalbuminemia - Possibly due to combined effects of malnutrition and inflammation associated with comorbid chronic conditions. Will ensure adequate dietary protein intake and also consult repair table operator. 3. DVT prophylaxis - Lovenox 40 mg SQ q 24 hours. 4. Advance directives - Full code
--- NOTE | 2018-10-13 04:12 | HP ---
CHIEF COMPLAINT: PCP: HISTORY OF PRESENT ILLNESS: 38 yo F with no sign.pmhx presents with three day history of worsening dizziness. She states that for the past three days she has had worsening lightheadness and dizziness while doing her ADLS. She mentions that she feels as if she is going to faint. She is noticed to be anemic with Hgb of 8 in ER. Upon questioning she states that she fills 5-6 super absorbant tampons for 5 days during her mentration. She is currently menstrating. She has been told with her presgnancies that she is anemic and was placed on iron previously, No history of transfusion. Denies CP MARR[place], SOB, abdominal pain, fever, or chills. ER course was notable for: (1)CT head negative. (2)Hgb 8.2 (3)Iron studies sent. Recent Travel:denies PAST MEDICAL HISTORY: anemia PAST SURGICAL HISTORY: 4 c-sections. Social History: Smoking:denies Alcohol:denies Drugs: denies Family History:father of [place] at 57 Allergies No Known Allergies Allergy (Verified 10/13/18 01:00) HOME MEDICATIONS: Home Medications Medication Instructions Recorded NK [No Known Home Medication] 10/13/18 REVIEW OF SYSTEMS CONSTITUTIONAL: generalized weakness, dizziness. Absent: fever, chills, diaphoresis, , malaise, loss of appetite, weight change HEENT: Absent: rhinorrhea, nasal congestion, throat pain, throat swelling, difficulty swallowing, mouth swelling, ear pain, eye pain, visual changes CARDIOVASCULAR: Absent: chest pain, syncope, palpitations, irregular heart rate, lightheadedness , peripheral edema RESPIRATORY: Absent: cough, shortness of breath, dyspnea with exertion, orthopnea, wheezing, stridor, hemoptysis GASTROINTESTINAL: Absent: abdominal pain, abdominal distension, nausea, vomiting, diarrhea, constipation, melena, hematochezia GENITOURINARY: Absent: dysuria, frequency, urgency, hesitancy, hematuria, flank pain, genital pain MUSCULOSKELETAL: Absent: myalgia, arthralgia, joint swelling, back pain, neck pain SKIN: Absent: rash, itching, pallor HEMATOLOGIC/IMMUNOLOGIC: Absent: easy bleeding, easy bruising, lymphadenopathy, frequent infections ENDOCRINE: Absent: unexplained weight gain, unexplained weight loss, heat intolerance, cold intolerance NEUROLOGIC: Absent: headache, focal weakness or paresthesias, dizziness, unsteady gait, seizure, mental status changes, bladder or bowel incontinence PSYCHIATRIC: Absent: anxiety, depression, suicidal or homicidal ideation, hallucinations. PHYSICAL EXAMINATION Vital Signs - 24 hr 10/13/18 00:20 Temperature 98.4 F Pulse Rate 54 L Respiratory 20 Rate Blood Pressure 108/63 O2 Sat by Pulse 100 Oximetry (%) GENERAL: AAOx3, NAD HEAD: NCAT EYES: PERRLA, extraocular movements intact, sclera anicteric, conjunctiva pale. EARS, NOSE, THROAT: Moist mucous membranes. NECK: supple without lymphadenopathy, JVD, or masses. LUNGS: CTAB. No wheezes, and no crackles. No accessory muscle use. HEART:RRR, normal S1 and S2 without murmur, rub or gallop. ABDOMEN: Soft,NTND,NABS, no guarding, no rebound, no masses. No hepatomegaly or splenomegaly. MUSCULOSKELETAL: Normal range of motion at all joints. No bony deformities or tenderness. No CVA tenderness. LOWER EXTREMITIES: 2+ pulses, warm, well-perfused. No calf tenderness. No peripheral edema. NEUROLOGICAL: Cranial nerves II-XII intact. Normal speech. Normal gait. PSYCHIATRIC: Cooperative. Good eye contact. Appropriate mood and affect. SKIN: Warm, dry, normal turgor, no rashes or lesions noted, normal capillary refill. Laboratory Results - last 24 hr 10/13/18 10/13/18 10/13/18 01:52 01:52 01:52 WBC Cancelled Corrected WBC (auto) Cancelled RBC Cancelled Hgb Cancelled Hct Cancelled MCV Cancelled MCH Cancelled MCHC Cancelled RDW Cancelled Plt Count Cancelled MPV Cancelled Absolute Neuts (auto) Cancelled Neutrophils % Cancelled Lymphocytes % Cancelled Monocytes % Cancelled Eosinophils % Cancelled Basophils % Cancelled Nucleated RBC % Cancelled Platelet Estimate Cancelled Platelet Comment Cancelled Sodium 139 Potassium 4.7 Chloride 111 H Carbon Dioxide 24 Anion Gap 5 L BUN 10 Creatinine 0.5 L Creat Clearance w eGFR 139.61 Random Glucose 125 H Calcium 8.1 L Total Bilirubin 0.4 AST 32 ALT 20 Alkaline Phosphatase 61 Total Protein 7.2 Albumin 3.2 L Serum , Qual Negative 10/13/18 02:43 WBC 6.1 Corrected WBC (auto) RBC 4.25 Hgb 8.2 L Hct 26.1 L MCV 61.4 L MCH 19.4 L D MCHC 31.5 L RDW 19.7 H Plt Count 380 D MPV 9.2 Absolute Neuts (auto) 3.4 Neutrophils % 56.3 D Lymphocytes % 32.5 D Monocytes % 7.3 Eosinophils % 1.4 Basophils % 2.5 H Nucleated RBC % 0 Platelet Estimate Platelet Comment Sodium Potassium Chloride Carbon Dioxide Anion Gap BUN Creatinine Creat Clearance w eGFR Random Glucose Calcium Total Bilirubin AST ALT Alkaline Phosphatase Total Protein Albumin Serum , Qual ASSESSMENT/PLAN: 38 yo F with no sign.pmhx presents with three day history of worsening dizziness found to have symptomatic anemia 2/2 to menorrhagia. Problem List - Problem (1) Anemia Assessment/Plan: microcytic anemia 2/2 menorrhagia * Iron studies sent * 1 gm IV iron ordered. * foreign exchange position clerk consult. (2) Dizziness Assessment/Plan: Ct head negative. * Most likely 2/2 anemia Visit type - Emergency Visit Emergency Visit: Yes ED Registration Date: 10/13/18 Care time: The patient presented to the Emergency Department on the above date and was hospitalized for further evaluation of their emergent condition. - New Patient This patient is new to me today: Yes Date on this admission: 10/15/18 - Critical Care Critical Care patient: No
[2018-10-13] MEDS: IRON SUCROSE INJECTION 500 MG in SODIUM CHLORIDE 225 ML IVPB SCH ×2 (05:04→10:58)
[2018-10-13 05:57] LABS: ANISOCYTOSIS 2+; MACROCYTOSIS 0; PLATELET ESTIMATE NORMAL; ROULEAU 1+
[2018-10-13 13:11] LABS: HEMATOCRIT 30.1 % (32.4-45.2); HEMOGLOBIN 9.4 GM/dL (10.7-15.3); MCHC 31.2 g/dl (32.0-36.0); MEAN CELL VOLUME 61.9 fl (80-96); MEAN PLT VOLUME 9.1 fl (7.5-11.1); PLATELET COUNT 446 K/MM3 (134-434); RBC 4.87 M/mm3 (3.60-5.2); RDW 19.5 % (11.6-15.6)
--- NOTE | 2018-10-13 13:13 | EKG ---
Test Reason : Blood Pressure : / mmHG Vent. Rate : 053 BPM Atrial Rate : 053 BPM P-R Int : 166 ms QRS Dur : 080 ms QT Int : 450 ms P-R-T Axes : 051 007 007 degrees QTc Int : 422 ms SINUS BRADYCARDIA WITH SINUS ARRHYTHMIA OTHERWISE NORMAL ECG NO PREVIOUS ECGS AVAILABLE Confirmed by MD BENIGNO, ALANA ([id number]) on 10/13/2018 1:13:23 PM Referred By: Confirmed By:ALANA PELAEZ MD
[2018-10-13] MEDS ORDERED: ONDANSETRON 4 MG/2 ML VIAL IVPUSH PRN (13:23)
[2018-10-13 13:57] LABS: MCH 19.3 pg (25.7-33.7)
[2018-10-13] MEDS: PANTOPRAZOLE 40 MG TABLET (FP) PO SCH (17:18)
[2018-10-13] MEDS ORDERED: SODIUM CHLORIDE 1,000 ML IV STA ×2 (18:45→18:54)
--- NOTE | 2018-10-13 18:49 | RAPID ---
Physical Examination Vital Signs: Vital Signs Temperature 98.3 F 10/13/18 15:40 Pulse Rate 63 10/13/18 15:40 Respiratory Rate 18 10/13/18 08:41 Blood Pressure 105/59 L 10/13/18 15:40 O2 Sat by Pulse Oximetry (%) 100 10/13/18 07:33 Findings/Remarks: Called to rapid response at 6:40pm. Patient was having bowel movement, found unresponsive with jerking movements, possible fall unwitnessed, unknown whether trauma or LOC occurred. Upon encounter BP 69/48, BGM 171. BP normalized to 100/ 50, HR 66. Ordered NS bolus x 2 and standing at 150 cc/hr, stat CBC, CMP, CPK, EKG, NCHCT. Consulted neurology. Lethargic but arousable. If seizure activity recurs, will give Keppra loading dose 1000mg + ativan. Cardiovascular: Yes: WNL Respiratory: Yes: WNL Gastrointestinal: Yes: WNL Labs: CBC, BMP 10/13/18 12:35 10/13/18 01:52
[2018-10-13] MEDS ORDERED: SODIUM CHLORIDE 1,000 ML IV SCH (19:00)
[2018-10-13 20:40] LABS: BASO % 0.1 % (0-2.0); HEMATOCRIT 36.9 % (32.4-45.2); HEMOGLOBIN 11.3 GM/dL (10.7-15.3); LYMPH % 2.9 % (8-40); MCHC 30.7 g/dl (32.0-36.0); MEAN CELL VOLUME 62.8 fl (80-96); MEAN PLT VOLUME 9.5 fl (7.5-11.1); PLATELET COUNT 509 K/MM3 (134-434); RBC 5.88 M/mm3 (3.60-5.2); RDW 19.6 % (11.6-15.6)
[2018-10-13 20:49] LABS: MCH 19.3 pg (25.7-33.7)
[2018-10-13 21:07] LABS: ALBUMIN 3.3 g/dl (3.4-5.0); ALK PHOS 71 U/L (45-117); ANION GAP 7 MMOL/L (8-16); BILIRUBIN,TOTAL 0.4 mg/dL (0.2-1); BLOOD UREA NITROGEN 12 mg/dL (7-18); CALCIUM 8.2 mg/dL (8.5-10.1); CHLORIDE 112 mmol/L (98-107); CO2 25 mmol/L (21-32); CREATININE 0.8 mg/dL (0.55-1.3); GLUCOSE,RANDOM 123 mg/dL (74-106); SGOT/AST 16 U/L (15-37); SGPT/ALT 18 U/L (13-61); SODIUM 144 mmol/L (136-145); TOT PROT 7.1 g/dl (6.4-8.2)
[2018-10-13 22:07] LABS: ANISOCYTOSIS 2+
[2018-10-13 22:08] LABS: PLATELET ESTIMATE INCREASED
[2018-10-14 08:10] LABS: SERUM IRON SATURATION 97 % (15-55); TOTAL IRON BINDING CAPACITY 840 ug/dL (250-450); UIBC 22 ug/dL (131-425)
[2018-10-14 08:22] LABS: HEMATOCRIT 24.6 % (32.4-45.2); HEMOGLOBIN 7.8 GM/dL (10.7-15.3); MCHC 31.6 g/dl (32.0-36.0); MEAN CELL VOLUME 62.2 fl (80-96); MEAN PLT VOLUME 9.7 fl (7.5-11.1); PLATELET COUNT 428 K/MM3 (134-434); RBC 3.95 M/mm3 (3.60-5.2); RDW 19.2 % (11.6-15.6)
--- NOTE | 2018-10-14 08:39 | CONSULT ---
Consult - text type - Consultation Consultation Note: 38yo female here with remote history of anemia during , (last 2016 ) who presents with dizziness. Asked for consult regarding HMB- Chart reviewed, normal sonogram. H/H 03/25 on admission, now improved s/p IV iron. TVUS reviewed, completely normal without pathology. Likely anemia not entirely due to menorrhagia in light of normal sonogram. Recommend outpatient follow up for further discussion of her issues. Radha Ram MD
[2018-10-14 09:30] LABS: MCH 19.6 pg (25.7-33.7)
--- NOTE | 2018-10-14 09:35 | CON.NEURO ---
Consult - Past Medical History ...LMP: 10/12/18 ...LMP Comment: Heavy - Past Surgical History Past Surgical History: Yes: - Alcohol/Substance Use Hx Alcohol Use: No History of Substance Use: reports: None - Smoking History Smoking history: Never smoked Have you smoked in the past 12 months: No - Social History History of Recent Travel: No Home Medications - Allergies Allergies/Adverse Reactions: Allergies Allergy/AdvReac Type Severity Reaction Status Date / Time No Known Allergies Allergy Verified 10/13/18 01:00 - Home Medications Home Medications: Ambulatory Orders NK [No Known Home Medication] 10/13/18 Physical Exam-Neuro Vital Signs: Vital Signs Temperature 98.4 F 10/14/18 06:00 Pulse Rate 60 10/14/18 06:00 Respiratory Rate 18 10/14/18 06:00 Blood Pressure 98/58 L 10/14/18 06:00 O2 Sat by Pulse Oximetry (%) 100 10/14/18 04:00 Labs: CBC, BMP 10/13/18 20:25 Assessment/Plan cc Possible Seizure on October 13 HPI 38 year old female history of anemia, and came with dizziness and lightheadedness. Patient went to bathroom on october 13 afternoon and she was having diarrhoea and feeling dizzy. She has slump over and whole body has brief jerking of arm and leg. There was no continuous tonic clonic activity and no focal symptoms, no tongue bite. She was tired for few minute. Patient has ct scan of brain and it was normal. She was found to have low bp and later she was given iv fluid. Today morning she is feeling better. PAST MEDICAL HISTORY: anemia PAST SURGICAL HISTORY: 4 c-sections. Social History: Smoking:denies Alcohol:denies Drugs: denies Family History:father of [place] at 57 Allergies No Known Allergies Allergy (Verified 10/13/18 01:00) HOME MEDICATIONS: Home Medications Medication Instructions Recorded NK [No Known Home Medication] 10/13/18 ROS,FH,SH reviewed in chart NEUROLOGICAL EXAMINATION Alert oriented x 3, speech is normal, no neck stiffness EOMI, pupils reactive, no face asymmetry, vf normal by confrontation motor 5/5 all ext, no rigidity or bradykinesia was seen sensation is normal ct head is normal Assessment: 38 year old female history of dizzines , and hypotension. I suspect she has episode of syncope and few people may have myclonic jerks during syncopal episode. Given neuro exam is noraml and ct head is normal. Suspician for epileptic seizure is low Plan suggest to do mri of brain and eeg - no need for AED. Thanking you so much Nick García MD
--- NOTE | 2018-10-14 09:42 | PN ---
Physical Exam: SUBJECTIVE: Patient seen and examined. Yesterday, she felt less dizzy, but developed epigastric pain and was started on Protonix. In the evening, she had diarrhea and passed out. At the time, BP was low. She was given IV fluid. This morning, she is eating breakfast and she denies dizziness, abdominal pain, nausea, diarrhea. OBJECTIVE: Vital Signs Period Temp Pulse Resp BP Sys/Wright Pulse Ox Last 24 Hr 98 F-98.4 F 55-69 18-21 93-110/50-60 100-100 GENERAL: The patient is awake, alert, and fully oriented, in no acute distress. LUNGS: Breath sounds equal, clear to auscultation bilaterally, no wheezes, no crackles, no accessory muscle use. HEART: Regular rate and rhythm, S1, S2 without murmur, rub or gallop. ABDOMEN: Soft, nontender, nondistended, normoactive bowel sounds, no guarding, no rebound, no hepatosplenomegaly, no masses. EXTREMITIES: 2+ pulses, warm, well-perfused, no edema. Laboratory Results - last 24 hr 10/13/18 10/13/18 10/13/18 12:35 12:35 18:46 WBC 7.0 RBC 4.87 Hgb 9.4 L Hct 30.1 L D MCV 61.9 L MCH 19.3 L MCHC 31.2 L RDW 19.5 H Plt Count 446 H MPV 9.1 Absolute Neuts (auto) Neutrophils % Neutrophils % (Manual) Band Neutrophils % Lymphocytes % Lymphocytes % (Manual) Monocytes % Monocytes % (Manual) Eosinophils % Basophils % Nucleated RBC % Hypochromia Platelet Estimate Anisocytosis Microcytosis Sodium Potassium Chloride Carbon Dioxide Anion Gap BUN Creatinine Creat Clearance w eGFR POC Glucometer 171 Random Glucose Calcium Iron 818 H TIBC 840 H Iron Saturation 97 H Total Bilirubin AST ALT Alkaline Phosphatase Creatine Kinase Total Protein Albumin 10/13/18 10/13/18 10/14/18 20:25 20:25 07:30 WBC 25.0 H 16.0 H RBC 5.88 H 3.95 Hgb 11.3 7.8 L Hct 36.9 D 24.6 L D MCV 62.8 L 62.2 L MCH 19.3 L 19.6 L MCHC 30.7 L 31.6 L RDW 19.6 H 19.2 H Plt Count 509 H 428 MPV 9.5 9.7 Absolute Neuts (auto) 23.7 H Neutrophils % 95.0 H D Neutrophils % (Manual) 92.0 H Band Neutrophils % 2.0 Lymphocytes % 2.9 L D Lymphocytes % (Manual) 4.0 L Monocytes % 2.0 L Monocytes % (Manual) 2 L Eosinophils % 0.0 D Basophils % 0.1 Nucleated RBC % 0 Hypochromia 2+ Platelet Estimate Increased Anisocytosis 2+ Microcytosis 2+ Sodium 144 Potassium 4.0 Chloride 112 H Carbon Dioxide 25 Anion Gap 7 L BUN 12 Creatinine 0.8 Creat Clearance w eGFR 81.16 POC Glucometer Random Glucose 123 H Calcium 8.2 L Iron TIBC Iron Saturation Total Bilirubin 0.4 AST 16 ALT 18 Alkaline Phosphatase 71 Creatine Kinase 56 Total Protein 7.1 Albumin 3.3 L Active Medications Generic Name Dose Route Start Last Admin Trade Name Freq PRN Reason Stop Dose Admin Sodium Chloride 1,000 mls @ 150 mls/hr 10/13/18 19:00 Normal Saline - IV ASDIR AMISH Ondansetron HCl 4 mg 10/13/18 13:23 Zofran Injection IVPUSH Q4H PRN NAUSEA AND/OR VOMITING Pantoprazole Sodium 40 mg 10/13/18 17:15 10/13/18 17:18 Protonix - PO 40 mg DAILY AMISH Administration ASSESSMENT/PLAN: This is a 38 year old woman with no significant medical history who presented to the ED with worsening dizziness. 1. Vasovagal syncope - Doubt seizure - Neurology input appreciated - MRI of brain, EEG ordered - Decrease IV fluid 2. Iron deficiency anemia - s/p Venofer - Ferritin low - Iron, TIBC, iron sat all high - were drawn after Venofer infusion - Hgb 7.8 today (8.2 -> 9.4 -> 11.3 -> 7.8) likely dilutional from IVF given after syncope yesterday - will continue to monitor - Likely secondary to menorrhagia - Will need outpatient software tester evaluation - Check stool for occult blood 3. Epigastric abdominal pain - Continue Protonix Visit type - Emergency Visit Emergency Visit: Yes ED Registration Date: 10/13/18 Care time: The patient presented to the Emergency Department on the above date and was hospitalized for further evaluation of their emergent condition. - New Patient This patient is new to me today: Yes Date on this admission: 10/14/18 - Critical Care Critical Care patient: No - Discharge Referral Referred to [facility] Med [facility] No
[2018-10-14] MEDS: SODIUM CHLORIDE 1,000 ML IV SCH ×2 (10:03→22:03)
[2018-10-14] MEDS: PANTOPRAZOLE 40 MG TABLET (FP) PO SCH (10:04)
--- NOTE | 2018-10-14 11:10 | EKG ---
Test Reason : Blood Pressure : / mmHG Vent. Rate : 065 BPM Atrial Rate : 065 BPM P-R Int : 140 ms QRS Dur : 080 ms QT Int : 428 ms P-R-T Axes : 037 011 029 degrees QTc Int : 445 ms NORMAL SINUS RHYTHM NORMAL ECG WHEN COMPARED WITH ECG OF 13-OCT-2018 01:16, NO SIGNIFICANT CHANGE WAS FOUND Confirmed by MD BENIGNO, ALANA ([id number]) on 10/14/2018 11:09:44 AM Referred By: Confirmed By:ALANA PELAEZ MD
[2018-10-14 13:11] LABS: HEMOGLOBIN 7.6 GM/dL (10.7-15.3); MCHC 31.8 g/dl (32.0-36.0); MEAN PLT VOLUME 9.2 fl (7.5-11.1); PLATELET COUNT 378 K/MM3 (134-434); RBC 3.87 M/mm3 (3.60-5.2); RDW 19.7 % (11.6-15.6); WHITE BLOOD COUNT 12.5 K/mm3 (4.0-10.0)
[2018-10-14 13:24] LABS: MCH 19.8 pg (25.7-33.7)
[2018-10-15 06:44] LABS: BASO % 1.2 % (0-2.0); EOS % 0.9 % (0-4.5); HEMATOCRIT 22.2 % (32.4-45.2); HEMOGLOBIN 7.1 GM/dL (10.7-15.3); LYMPH % 23.7 % (8-40); MCHC 31.7 g/dl (32.0-36.0); MEAN CELL VOLUME 61.4 fl (80-96); MEAN PLT VOLUME 8.8 fl (7.5-11.1); MONO % 5.6 % (3.8-10.2); NEUT % 68.6 % (42.8-82.8); PLATELET COUNT 342 K/MM3 (134-434); RBC 3.62 M/mm3 (3.60-5.2); RDW 19.7 % (11.6-15.6)
[2018-10-15 07:10] LABS: ANION GAP 5 MMOL/L (8-16); BLOOD UREA NITROGEN 5 mg/dL (7-18); CHLORIDE 115 mmol/L (98-107); CO2 25 mmol/L (21-32); CREATININE 0.5 mg/dL (0.55-1.3); GLUCOSE,RANDOM 86 mg/dL (74-106); POTASSIUM 3.7 mmol/L (3.5-5.1); SODIUM 144 mmol/L (136-145)
[2018-10-15 07:21] LABS: MCH 19.5 pg (25.7-33.7)
[2018-10-15] MEDS: PANTOPRAZOLE 40 MG TABLET (FP) PO SCH (10:11)
[2018-10-15] MEDS: SODIUM CHLORIDE 1,000 ML IV SCH (10:12)
--- NOTE | 2018-10-15 12:41 | PN ---
Progress Note, Physician Chief Complaint: Today no new symptoms - Current Medication List Current Medications: Active Medications Sodium Chloride (Normal Saline -) 1,000 mls @ 83 mls/hr IV ASDIR [facility] Last Admin: 10/15/18 10:12 Dose: 83 mls/hr Ondansetron HCl (Zofran Injection) 4 mg IVPUSH Q4H PRN PRN Reason: NAUSEA AND/OR VOMITING Pantoprazole Sodium (Protonix -) 40 mg PO DAILY [facility] Last Admin: 10/15/18 10:11 Dose: 40 mg - Objective Vital Signs: Vital Signs Temperature 98.5 F 10/15/18 09:21 Pulse Rate 71 10/15/18 12:18 Respiratory Rate 20 10/15/18 12:18 Blood Pressure 117/76 10/15/18 12:18 O2 Sat by Pulse Oximetry (%) 100 10/14/18 21:00 GENERAL: Young F no c/o DSizziness awake, alert, and in no acute distress. HEENT: Mm moist, + anemia, PERRLA EOMI LUNGS: CTA B/L HEART: Regular rate and rhythm, S1, S2 without murmur, rub or gallop. ABDOMEN: Soft, non-distended, normoactive bowel sounds, no hepatosplenomegaly, no masses. EXTREMITIES: 2+ pulses, warm, well-perfused, trace edema of legs. 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
[2018-10-15 15:01] VITALS: BP 111/73; PULSE 67; TEMP 98.4
[2018-10-15 16:40] LABS: BASO % 1.6 % (0-2.0); EOS % 0.6 % (0-4.5); HEMOGLOBIN 7.5 GM/dL (10.7-15.3); LYMPH % 27.5 % (8-40); MCHC 31.5 g/dl (32.0-36.0); MEAN CELL VOLUME 62.3 fl (80-96); MEAN PLT VOLUME 9.6 fl (7.5-11.1); MONO % 6.3 % (3.8-10.2); PLATELET COUNT 369 K/MM3 (134-434); RBC 3.84 M/mm3 (3.60-5.2)
[2018-10-15 16:49] LABS: MCH 19.6 pg (25.7-33.7)
--- NOTE | 2018-10-15 17:03 | PN ---
Progress Note (short form) - Note Progress Note: 38 year old female history of anemia, and came with dizziness and lightheadedness. Patient went to bathroom on october 13 afternoon and she was having diarrhoea and feeling dizzy. She has slump over and whole body has brief jerking of arm and leg. There was no continuous tonic clonic activity and no focal symptoms, no tongue bite. She was tired for few minute. Patient has ct scan of brain and it was normal. She was found to have low bp and later she was given iv fluid. no more seizure, and mri of brain is normal. patient seen and examined , chart reviewed. I spoke to nursing staff. NEUROLOGICAL EXAMINATION Alert oriented x 3, speech is normal, no neck stiffness EOMI, pupils reactive, no face asymmetry, vf normal by confrontation motor 5/5 all ext, no rigidity or bradykinesia was seen sensation is normal ct head is normal mri of brain is normal eeg is pending Assessment: 38 year old female history of dizzines , and hypotension. I suspect she has episode of syncope and few people may have myclonic jerks during syncopal episode. mri of brain is normal, neuro exam is normal and eeg is pending. Plan would follow up on EEG - no need for AED. Thanking you so much Nick García MD
[2018-10-15] MEDS ORDERED: FERROUS SO4 325 MG TABLET (FP) PO SCH (17:30)
--- NOTE | 2018-10-15 17:33 | DS ---
Physical Examination Vital Signs: Vital Signs Temperature 98.4 F 10/15/18 14:57 Pulse Rate 67 10/15/18 14:57 Respiratory Rate 20 10/15/18 14:57 Blood Pressure 111/73 10/15/18 14:57 O2 Sat by Pulse Oximetry (%) 100 10/15/18 09:00 GENERAL: Young F no c/o DSizziness awake, alert, and in no acute distress. HEENT: Mm moist, + anemia, PERRLA EOMI LUNGS: CTA B/L HEART: Regular rate and rhythm, S1, S2 without murmur, rub or gallop. ABDOMEN: Soft, non-distended, normoactive bowel sounds, no hepatosplenomegaly, no masses. EXTREMITIES: 2+ pulses, warm, well-perfused, trace edema of legs. 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 Labs: CBC, BMP 10/15/18 15:30 10/15/18 06:10 Discharge Summary Reason For Visit: DIZZINESS,ANEMIA Current Active Problems Anemia (Acute) Dizziness (Acute) Symptomatic anemia (Acute) Syncope (Acute) Hospital Course: 38 yrs old f known case of chronic PUSHPA, menorrhagia stopped taking PO Iron no c /o abdominal pain black stool or wt loss present with c/o Dizzy mostly with cahnging posture in the Ed patient lanb shows low H/H with MIcrocytosis 8.2/26 MCV 61 received IV Hydration, anna also had an episode of syncope while sitting on the commode after large BM and abdominal cramp, in between mild rise in H/H (most likely lab error) subsequently dropped to base line , patient is was evaluated ? seizure seen by Neurology MRI normal EEG done result is pending result, evaluated by neurology recommended very low suspicion for seizures will F/U as out patient as patient wants to go home will Dc home to F/ U on PO iron PPI, Condition: Fair - Instructions Diet, Activity, Other Instructions: Regular Referrals: Nick García MD [Staff Physician] - 2 Weeks David Richey MD [Staff Physician] - 1 Month Radha Ram MD [Staff Physician] - 1 Month Disposition: HOME - Home Medications Comprehensive Discharge Medication List: Ambulatory Orders Ferrous Sulfate [Feosol] 325 mg PO TIDCM 30 Days #90 ud 10/15/18 Pantoprazole Sodium [Protonix -] 40 mg PO DAILY #30 tablet.ec 10/15/18
[2018-10-16 16:24] LABS: HGB SOLUBILITY Positive (Negative); Hgb A 63.7 % (96.4-98.8); Hgb C 0 % (0.0); Hgb F 0 % (0.0-2.0); Hgb S 32.9 % (0.0)
== END 2018-10-15 17:58 | disposition home or self-care (01) | DRG 663 ==
LOC: JER 00:20 → INTOOBSV 03:22 → JERBED 03:22 → UNDOADMOB 03:22 → JERBED 04:03 → OBSVTOIN 07:01 → J6S 08:19
PROVIDERS: ADMIT Internal Medicine; ATTEND Internal Medicine
DX: D50.9 Iron deficiency anemia, unspecified (principal); R42 Dizziness and giddiness; N92.0 Excessive and frequent menstruation with regular cycle; I95.9 Hypotension, unspecified; R10.13 Epigastric pain; E88.09 Other disorders of plasma-protein metabolism, not elsewhere classified; R19.7 Diarrhea, unspecified
CPT/HCPCS: 36415; 70450-TC; 70551-TC; 71045-TC-FY; 76830-TC; 76856-TC; 80048; 80053; 82550; 82728; 82962; 83021; 83540; 83550; 83615; 84703; 85025; 85027; 85660; 93005; 93010; 95816; 99284-25; G0378; J1756; J7030

== ENCOUNTER 2023-04-01 17:10 | Emergency (ER) | payer OTHER ==
[2023-04-01 17:24] VITALS: RESP 18; TEMP 98.1; BMI 23.1
[2023-04-01] MEDS ORDERED: ONDANSETRON 4 MG/2 ML VIAL IVPUSH ONE (17:49)
[2023-04-01] MEDS ORDERED: FAMOTIDINE 20 MG/50 ML IVPB 20 MG/50 ML MG IVPB ONE ×2 (17:49→17:52)
[2023-04-01] MEDS ORDERED: SODIUM CHLORIDE 0.9% 500 ML INFUS.BAG IV ONE (17:49)
[2023-04-01] MEDS ORDERED: ONDANSETRON 4 MG/2 ML VIAL ONE (17:52)
[2023-04-01 18:17] LABS: EOS % 0.3 % (0-4.5); HEMATOCRIT 24.8 % (32.4-45.2); HEMOGLOBIN 7.4 GM/dL (10.7-15.3); LYMPH % 11.6 % (8-40); MCHC 29.9 g/dl (32.0-36.0); MEAN CELL VOLUME 56.3 fl (80-96); MEAN PLT VOLUME 8.7 fl (7.5-11.1); MONO % 4.1 % (3.8-10.2); PLATELET COUNT 383 10^3/uL (134-434); RBC 4.41 M/mm3 (3.60-5.2); RDW 19.6 % (11.6-15.6); WHITE BLOOD COUNT 11.7 K/mm3 (4.0-10.0)
[2023-04-01 18:24] LABS: MCH 16.8 pg (25.7-33.7)
[2023-04-01 18:35] LABS: POTASSIUM 3.8 mmol/L (3.5-5.1)
[2023-04-01 18:37] LABS: CALCIUM 8.6 mg/dL (8.5-10.1)
[2023-04-01 18:38] LABS: ALBUMIN 3.5 g/dl (3.4-5.0); BLOOD UREA NITROGEN 10.9 mg/dL (7-18)
[2023-04-01 18:41] LABS: CREATININE 0.6 mg/dL (0.55-1.3)
[2023-04-01 18:42] LABS: BILIRUBIN,TOTAL 0.8 mg/dL (0.2-1); TOT PROT 7.6 g/dl (6.4-8.2)
[2023-04-01] MEDS ORDERED: ACETAMINOPHEN 1000 MG/100 ML BAG IVPB ONE (19:30)
[2023-04-01] MEDS ORDERED: ACETAMINOPHEN INJECTION 100 ML IVPB ONE (19:36)
[2023-04-01 20:05] LABS: ANISOCYTOSIS 3+; MACROCYTOSIS 0; OVALOCYTE 1+; TARGET CELLS 1+
[2023-04-01 20:10] VITALS: BP 102/76; PULSE 70
== END 2023-04-01 20:10 | disposition home or self-care (01) ==
LOC: JER 17:10
PROC: 3E033GC Introduction of Other Therapeutic Substance into Peripheral Vein, Percutaneous Approach (ICD-10-PCS; principal; 2023-04-01)
PROC: 3E033NZ Introduction of Analgesics, Hypnotics, Sedatives into Peripheral Vein, Percutaneous Approach (ICD-10-PCS; 2023-04-01)
PROC: 3E033GC Introduction of Other Therapeutic Substance into Peripheral Vein, Percutaneous Approach (ICD-10-PCS; 2023-04-01)
DX: R10.13 Epigastric pain (principal); R11.2 Nausea with vomiting, unspecified; R10.11 Right upper quadrant pain; K80.70 Calculus of gallbladder and bile duct without cholecystitis without obstruction; D64.9 Anemia, unspecified
CPT/HCPCS: 36415; 71046-TC-FY; 76705-TC; 80053; 83690; 84703; 85025; 99285-25

== ENCOUNTER 2023-08-27 23:18 | Inpatient (IN) | payer SELFPAY ==
[2023-08-27 23:30] VITALS: BMI 21.1
[2023-08-28] MEDS ORDERED: FAMOTIDINE 20 MG/50 ML IVPB 20 MG/50 ML MG IVPB ONE ×2 (01:09→02:16)
[2023-08-28] MEDS ORDERED: ACETAMINOPHEN 1000 MG/100 ML BAG IVPB ONE (01:09)
[2023-08-28] MEDS ORDERED: ONDANSETRON 4 MG/2 ML VIAL IVPUSH ONE (01:09)
[2023-08-28] MEDS ORDERED: SODIUM CHLORIDE 1,000 ML IV STA (01:10)
[2023-08-28 01:31] LABS: HEMATOCRIT 22.7 % (32.4-45.2); MCHC 29.3 g/dl (32.0-36.0); PLATELET COUNT 364 10^3/uL (134-434); RBC 4.28 M/mm3 (3.60-5.2); WHITE BLOOD COUNT 11.1 K/mm3 (4.0-10.0)
[2023-08-28 01:38] LABS: INR 1.13 (0.83-1.09); PROTHROMBIN TIME (PATIENT) 13.1 SEC (9.7-13.0)
[2023-08-28 01:40] LABS: ACTIVATED PTT 25.2 SECONDS (25.2-36.5); MCH 15.5 pg (25.7-33.7)
[2023-08-28 01:41] LABS: ADD RBC MORPHOLOGY YES
[2023-08-28 01:42] LABS: EPI CELLS >36 /uL (0-25.1); HYALINE CASTS 3 /uL (0-3.1); PH,URINE 7.5 (5.0-8.0); URINE APPEARANCE CLEAR; URINE BACTERIA 108 /uL (0-1359); URINE BILIRUBIN NEGATIVE (NEGATIVE); URINE COLOR YELLOW; URINE GLUCOSE (UA) NEGATIVE (NEGATIVE); URINE KETONE 1+ (NEGATIVE); URINE LEUK ESTERASE TRACE (NEGATIVE); URINE NITRITE NEGATIVE (NEGATIVE); URINE PROTEIN NEGATIVE (NEGATIVE); URINE RBC 6 /uL (0-23.9); URINE WBC 12 /uL (0-25.8)
[2023-08-28 01:42] LABS: POTASSIUM 4.4 mmol/L (3.5-5.1)
[2023-08-28 01:45] LABS: ALBUMIN 3.3 g/dl (3.4-5.0); CALCIUM 9.1 mg/dL (8.5-10.1)
[2023-08-28 01:46] LABS: HEMOGLOBIN 6.7 GM/dL (10.7-15.3)
[2023-08-28 01:48] LABS: CREATININE 0.6 mg/dL (0.55-1.3)
[2023-08-28 01:50] LABS: BILIRUBIN,TOTAL 1.1 mg/dL (0.2-1); TOT PROT 7.4 g/dl (6.4-8.2)
[2023-08-28] MEDS ORDERED: ONDANSETRON 4 MG/2 ML VIAL ONE (02:16)
[2023-08-28] MEDS ORDERED: ACETAMINOPHEN INJECTION 100 ML IVPB ONE (02:16)
[2023-08-28] MEDS ORDERED: PIPERACILLIN/TAZOB 3.375 GM 3.375 GM in DEXTROSE 5%-WATER - 50 ML IVPB ONE (03:16)
[2023-08-28] MEDS ORDERED: PIPERACILLIN/TAZOB 3.375 GM 3.375 GM/50 ML BAG IVPB ONE ×3 (03:25→15:02)
[2023-08-28] MEDS ORDERED: KETOROLAC TROMETHAMINE 15 MG/ML VIAL IM PRN (04:55)
[2023-08-28] MEDS: LACTATED RINGERS SOLUTION 1,000 ML/1,000 ML INFUS.BAG IV SCH (05:14)
[2023-08-28 05:24] LABS: RETICULOCYTES 0.93 % (0.5-1.5)
[2023-08-28] MEDS ORDERED: SODIUM CHLORIDE 1,000 ML IV SCH (06:00)
[2023-08-28 06:17] LABS: MAGNESIUM 1.8 mg/dL (1.8-2.4)
[2023-08-28 06:20] LABS: PHOSPHOROUS 2.2 mg/dL (2.5-4.9)
[2023-08-28 06:27] LABS: BASO % 0.8 % (0-2.0); HEMATOCRIT 20.6 % (32.4-45.2); LYMPH % 29.2 % (8-40); MCHC 28.9 g/dl (32.0-36.0); MEAN CELL VOLUME 53.9 fl (80-96); MEAN PLT VOLUME 8.6 fl (7.5-11.1); MONO % 2.8 % (3.8-10.2); NEUT % 67.2 % (42.8-82.8); PLATELET COUNT 302 10^3/uL (134-434); RBC 3.81 M/mm3 (3.60-5.2); RDW 20.3 % (11.6-15.6); WHITE BLOOD COUNT 10.1 K/mm3 (4.0-10.0)
[2023-08-28 06:31] LABS: POTASSIUM 4.2 mmol/L (3.5-5.1)
[2023-08-28 06:34] LABS: ANISOCYTOSIS 2+
[2023-08-28 06:35] LABS: CALCIUM 8.2 mg/dL (8.5-10.1)
[2023-08-28 06:36] LABS: ALBUMIN 2.9 g/dl (3.4-5.0); BLOOD UREA NITROGEN 11.2 mg/dL (7-18); MAGNESIUM 1.8 mg/dL (1.8-2.4)
[2023-08-28 06:37] LABS: MCH 15.6 pg (25.7-33.7)
[2023-08-28 06:39] LABS: CREATININE 0.6 mg/dL (0.55-1.3)
[2023-08-28 06:40] LABS: HEMOGLOBIN 5.9 GM/dL (10.7-15.3); TOT PROT 6.4 g/dl (6.4-8.2)
[2023-08-28] MEDS ORDERED: PIPERACILLIN/TAZOB 3.375 GM 3.375 GM in DEXTROSE 5%-WATER - 50 ML IVPB SCH (09:00)
[2023-08-28] MEDS: PIPERACILLIN/TAZOB 3.375 GM 3.375 GM in DEXTROSE 5%-WATER - 50 ML IVPB SCH ×2 (12:11→15:17)
[2023-08-28] MEDS ORDERED: IRON SUCROSE INJECTION 200 MG in SODIUM CHLORIDE 90 ML IVPB ONE (16:08)
[2023-08-28] MEDS ORDERED: ACETAMINOPHEN 1000 MG/100 ML BAG IVPB PRN (16:35)
[2023-08-28] MEDS ORDERED: ONDANSETRON 4 MG/2 ML VIAL IVPUSH PRN (16:36)
[2023-08-28 19:48] LABS: HEMOGLOBIN 7.8 GM/dL (10.7-15.3); MCHC 30.2 g/dl (32.0-36.0); MEAN CELL VOLUME 59.6 fl (80-96); MEAN PLT VOLUME 8.8 fl (7.5-11.1); PLATELET COUNT 321 10^3/uL (134-434); RBC 4.36 M/mm3 (3.60-5.2); RDW 26.9 % (11.6-15.6); WHITE BLOOD COUNT 8.5 K/mm3 (4.0-10.0)
[2023-08-29] MEDS: PIPERACILLIN/TAZOB 3.375 GM 3.375 GM in DEXTROSE 5%-WATER - 50 ML IVPB SCH ×2 (00:53→05:32)
[2023-08-29] MEDS: LACTATED RINGERS SOLUTION 1,000 ML/1,000 ML INFUS.BAG IV SCH (00:53)
[2023-08-29] MEDS ORDERED: BUPIVACAINE HCL/PF 0.5% (5MG/ML) 10 ML VIAL ONE (07:33)
[2023-08-29] MEDS ORDERED: PROPOFOL 20 ML ONE (08:49)
[2023-08-29] MEDS ORDERED: MIDAZOLAM HCL 2 MG/2 ML SINGLE DOSE VIAL ONE (08:50)
[2023-08-29] MEDS ORDERED: SUCCINYLCHOLINE CHLORIDE 200 MG/10 ML SYRINGE ONE (08:50)
[2023-08-29] MEDS ORDERED: ONDANSETRON 4 MG/2 ML VIAL ONE (08:52)
[2023-08-29] MEDS ORDERED: PIPERACILLIN/TAZOBACTAM 3.375 GM VIAL IVPB ONE ×2 (09:10→09:12)
[2023-08-29] MEDS ORDERED: BUPIVACAINE HCL/PF 0.5% (5MG/ML) 10 ML VIAL IJ ONE ×2 (09:17)
[2023-08-29] MEDS ORDERED: HYDROmorphone HCl 2 MG/ML VIAL ONE (09:28)
[2023-08-29] MEDS ORDERED: MAGNESIUM SULF 50% (8.12 MEQ/2 ML-1 GM VIAL) ONE (09:32)
[2023-08-29] MEDS ORDERED: SUGAMMADEX SODIUM 200 MG/2 ML VIAL ONE (09:32)
[2023-08-29] MEDS ORDERED: ACETAMINOPHEN INJECTION 100 ML IVPB ONE (09:33)
[2023-08-29] MEDS ORDERED: KETAMINE HCL 200 MG/20 ML VIAL ONE (09:33)
[2023-08-29] MEDS ORDERED: LIDOCAINE HCL/PF 2% SDV 5ML VIAL ONE ×2 (09:47→09:48)
[2023-08-29] MEDS ORDERED: ONDANSETRON 4 MG/2 ML VIAL IVPUSH PRN (10:26)
[2023-08-29] MEDS ORDERED: LACTATED RINGERS SOLUTION 1,000 ML/1,000 ML INFUS.BAG IV SCH (10:30)
[2023-08-29] MEDS ORDERED: LACTATED RINGERS SOLUTION 1,000 ML IV SCH (10:30)
[2023-08-29 12:41] VITALS: RESP 18
[2023-08-29 13:04] LABS: HEMATOCRIT 29.4 % (32.4-45.2); HEMOGLOBIN 9.1 GM/dL (10.7-15.3); MCHC 30.9 g/dl (32.0-36.0); MEAN CELL VOLUME 61.1 fl (80-96); MEAN PLT VOLUME 8.6 fl (7.5-11.1); PLATELET COUNT 314 10^3/uL (134-434); RBC 4.82 M/mm3 (3.60-5.2); RDW 29.7 % (11.6-15.6); WHITE BLOOD COUNT 14.8 K/mm3 (4.0-10.0)
[2023-08-29 13:07] LABS: MCH 18.9 pg (25.7-33.7)
[2023-08-29 13:11] LABS: INR 1.16 (0.83-1.09); PROTHROMBIN TIME (PATIENT) 13.4 SEC (9.7-13.0)
[2023-08-29 13:30] LABS: ALBUMIN 3.2 g/dl (3.4-5.0); CALCIUM 8.6 mg/dL (8.5-10.1)
[2023-08-29 13:32] LABS: ANISOCYTOSIS 2+; MACROCYTOSIS 0
[2023-08-29 13:34] LABS: CREATININE 0.7 mg/dL (0.55-1.3)
[2023-08-29 13:35] LABS: BILIRUBIN,TOTAL 1.2 mg/dL (0.2-1)
[2023-08-29 13:36] LABS: TOT PROT 6.7 g/dl (6.4-8.2)
[2023-08-29] MEDS: oxyCODONE HCL 5 MG TABLET PO PRN (14:26)
[2023-08-29] MEDS: ACETAMINOPHEN 500 MG TABLET (FP) PO SCH (19:18)
[2023-08-30] MEDS: oxyCODONE HCL 5 MG TABLET PO PRN (00:17)
[2023-08-30] MEDS: ACETAMINOPHEN 500 MG TABLET (FP) PO SCH ×2 (01:47→08:30)
[2023-08-30 08:20] LABS: POTASSIUM 4.3 mmol/L (3.5-5.1)
[2023-08-30 08:21] LABS: CALCIUM 8.5 mg/dL (8.5-10.1)
[2023-08-30 08:22] LABS: BLOOD UREA NITROGEN 6.6 mg/dL (7-18)
[2023-08-30 08:25] LABS: CREATININE 0.6 mg/dL (0.55-1.3)
[2023-08-30 08:38] LABS: BASO % 1.1 % (0-2.0); EOS % 0.3 % (0-4.5); HEMATOCRIT 28.1 % (32.4-45.2); HEMOGLOBIN 8.8 GM/dL (10.7-15.3); MCHC 31.4 g/dl (32.0-36.0); MEAN CELL VOLUME 61.9 fl (80-96); MEAN PLT VOLUME 9.2 fl (7.5-11.1); MONO % 4.3 % (3.8-10.2); NEUT % 78.3 % (42.8-82.8); PLATELET COUNT 307 10^3/uL (134-434); RBC 4.54 M/mm3 (3.60-5.2); RDW 30.2 % (11.6-15.6); WHITE BLOOD COUNT 11.1 K/mm3 (4.0-10.0)
[2023-08-30 08:41] LABS: MCH 19.4 pg (25.7-33.7)
[2023-08-30 10:50] VITALS: BP 99/69; PULSE 49; TEMP 98.2
== END 2023-08-30 11:48 | disposition home or self-care (01) | DRG 263 ==
LOC: JER 23:18 → JERBED 08-28 04:42 → J7W 08-29 00:08
PROVIDERS: ADMIT Internal Medicine; ATTEND Nurse Practitioner Family
PROC: 30233N1 Transfusion of Nonautologous Red Blood Cells into Peripheral Vein, Percutaneous Approach (ICD-10-PCS; 2023-08-28)
PROC: 0FT44ZZ Resection of Gallbladder, Percutaneous Endoscopic Approach (ICD-10-PCS; principal; 2023-08-29 08:30)
DX: K80.00 Calculus of gallbladder with acute cholecystitis without obstruction (principal); Z98.84 Bariatric surgery status; D50.9 Iron deficiency anemia, unspecified; N92.0 Excessive and frequent menstruation with regular cycle
CPT/HCPCS: 0241U-QW; 36415; 36430; 76705-TC; 76856-TC; 80048; 80053; 81003; 82607; 82728; 82746; 83540; 83550; 83690; 83735; 84100; 84703; 85025; 85027; 85045; 85610; 85730; 86850; 86900; 86901; 86922; 87086; 88304-TC; 93005; 93010; 94010; 94760; 99285-25; J0131; J1756; P9038; P9058